=== PATIENT | male | born 1980 | race Caucasian/White ===

== ENCOUNTER 2016-10-06 20:22 | Emergency (ER) | payer MEDICARE | END 2016-10-06 22:23 | disposition other institution (70) | LOC: ER 20:22 | DX: M54.12 Radiculopathy, cervical region (principal) | CPT/HCPCS: 72125; 99284-25 ==

== ENCOUNTER 2016-10-18 15:55 | Emergency (ER) | payer MEDICARE | END 2016-10-18 20:29 | disposition home or self-care (01) | LOC: ER 15:55 | DX: J06.9 Acute upper respiratory infection, unspecified (principal); J40 Bronchitis, not specified as acute or chronic; Z87.891 Personal history of nicotine dependence | CPT/HCPCS: 71020; 94664; 99285-25 ==